=== PATIENT | male | born 2005 | race African-American/Black ===

== ENCOUNTER 2024-05-09 20:01 | Emergency (ER) | payer MEDICAID, SELFPAY ==
[2024-05-09] MEDS ORDERED: Ibuprofen 200 MG TAB ONE (21:31)
== END 2024-05-09 21:40 | disposition home or self-care (01) ==
LOC: ERS 20:01
DX: J10.1 Influenza due to other identified influenza virus with other respiratory manifestations (principal)
CPT/HCPCS: 87428; 99283